=== PATIENT | female | born 1960 | race Caucasian/White ===

== ENCOUNTER 2018-02-28 14:00 | Outpatient (AMBR) | payer MEDICARE, MEDICAID, SELFPAY ==
--- NOTE | 2018-02-25 11:38 | PTNOTE_ITS ---
PT OP Initial Eval Patient Information Visit Reasons: RIGHT LEG Medical Diagnosis: M76.71 Treatment Dx #1: Right Ankle Pain Treatment Dx #2: Right Ankle Weakness Start of Care: 02/25/18 Date of Onset: 3 months ago Initial Assessment Subjective Pt is a 57 y/o female with a long standing right ankle injury that started several years ago after her back surgery. Pt mention that her ankle is numb since the back surgery. Pt has fallen multiple times in the past 6 months. Pt mention that her ankle pain is 8/10. Pt's ankle MRI showed tendonitis. Pt currently has difficulty with prolonged walking, chores, self care, cooking, cleaning, uneven surfaces, and performing normal ADLs. Objective Right Ankle AROM DF: neutral PF: 20 deg Eversion: neutral Inversion: 15 deg Right Ankle MMTs DF: 3/5 PF: 3/5 Invertors: 3-/5 Evertors: 2/5 Right Hip MMTs Glute Med: 3-/5 Glute Max: 3-/5 LEFS score: 12% Assessment Pt demonstrate right ankle mobility and strength deficits s/p ankle injury leading to decline function and difficulty with ADLs. Pt will benefit from physical therapy to increase strength, mobility, and work on balance. Short Term and Skilled Nursing Goals 1) Increase right ankle AROM WFL and LEFS score to 60% in 6 wks to be able to walk more than 2 hrs 2) Increase right ankle MMTs to 3+/5 in 6 wks to be able to perform chores 3) Increase right hip MMTs to 3+/5 in 6 wks to be able to perform self care activities 4) Increase dynamic balance WFL in 6 wks to be able to negotiate uneven surfaces 5) Indep with HEP Treatment Plan 1) Manual Therapy 2) Therapeutic Activities 3) Therapeutic Exercises 4) Modalities (ice, heat) 5) Balance Training Frequency and Duration 2 x wk for 6 wks Certification Dates: 02/25/18 to 05/26/18 Office Procedures PT Outpatient G-Codes Date of Service PT Date of Service: 02/25/18 G-Codes Walking & Moving Around Mobility Current Status G-Code: G8978: CM 80-100% Mobility Status G-Code: G8979: CK 40-60% PT Procedures PT Date of Service: 02/25/18 OP PT Eval Mod Complex 30 minutes: Yes
--- NOTE | 2018-02-28 16:02 | PT.ODAYNRPT ---
PT Outpatient Daily Note Date of Service: February 28, 2018 OP Daily Note Visit Reasons: RIGHT LEG Outpatient Physical Therapy Treatment Date: 02/28/18 Subjective: pt reported being anxious as she steps onto the curb because of ankle weakness which could lead to fall. pt is very careful as she steps up and down the curb. Objective: see flow sheet. Assessment: pt ambulating with ankle brace and limping due to pain. pt had difficulty with keeping the R foot on the pedal because it would slip off. observed pt ascending and descending the step and placed the chair right behind her for safety if she needed to sit. pt was dragging her foot during side steps and corrected pt to lift and step as she continues to move along the rail. rest breaks needed in between some exercises. slow pace with each rep to achieve proper performance. Plan: continue POC per PT. Length of Time (minutes) of Treatment: 30 Minutes Office Procedures PT Outpatient G-Codes Date of Service PT Date of Service: 02/25/18 G-Codes Walking & Moving Around Mobility Current Status G-Code: G8978: CM 80-100% Mobility Status G-Code: G8979: CK 40-60% PT Procedures PT Date of Service: 02/28/18 Therapeutic Exercise 30 minutes: Yes PT Procedures PT Date of Service: 02/25/18 OP PT Eval Mod Complex 30 minutes: Yes
== END 2018-03-14 23:59 | disposition home or self-care (01) ==
PROVIDERS: PCP General Practice; Referring Provider General Practice; Visit Provider Orthopaedic Surgery
DX: M25.571 Pain in right ankle and joints of right foot (principal); R53.1 Weakness; R20.0 Anesthesia of skin; R26.2 Difficulty in walking, not elsewhere classified; I10 Essential (primary) hypertension
CPT/HCPCS: 97110; 97162; G8978; G8979